=== PATIENT | male | born 1965 | race Caucasian/White ===

== ENCOUNTER 2023-02-13 21:15 | Inpatient (IN) | payer OTHER ==
[2023-02-13 21:26] VITALS: BMI 25.7
[2023-02-13 23:03] LABS: BASO % 0.6 % (0-2.0); EOS % 1.3 % (0-4.5); HEMOGLOBIN 14.6 GM/dL (11.7-16.9); LYMPH % 21.2 % (8-40); MCH 31.2 pg (25.7-33.7); MCHC 34.9 g/dl (32.0-35.9); MEAN CELL VOLUME 89.5 fl (80-96); MEAN PLT VOLUME 10.2 fl (7.5-11.1); MONO % 8.9 % (3.8-10.2); PLATELET COUNT 128 10^3/uL (134-434); RDW 12.5 % (11.9-15.9); WHITE BLOOD COUNT 11.9 K/mm3 (4.0-10.0)
[2023-02-13 23:14] LABS: INR 1.05 (0.83-1.09); PROTHROMBIN TIME (PATIENT) 12.2 SEC (9.7-13.0)
[2023-02-13 23:17] LABS: ACTIVATED PTT 30.2 SECONDS (25.2-36.5)
[2023-02-13 23:31] LABS: POTASSIUM 4.2 mmol/L (3.5-5.1)
[2023-02-13 23:33] LABS: ALBUMIN 3.5 g/dl (3.4-5.0); BLOOD UREA NITROGEN 17.3 mg/dL (7-18); CALCIUM 9.2 mg/dL (8.5-10.1); MAGNESIUM 2.2 mg/dL (1.8-2.4)
[2023-02-13 23:36] LABS: CREATININE 1.1 mg/dL (0.55-1.3)
[2023-02-13 23:38] LABS: TOT PROT 7.8 g/dl (6.4-8.2)
[2023-02-14 00:36] LABS: BILIRUBIN,TOTAL 0.2 mg/dL (0.2-1)
[2023-02-14] MEDS ORDERED: ENOXAPARIN NA (PORCINE) 40 MG/0.4 ML DISP.SYRIN SQ ONE (01:31)
[2023-02-14] MEDS ORDERED: ENOXAPARIN NA (PORCINE) 80 MG/0.8 ML DISP.SYRIN SQ ONE (01:35)
[2023-02-14 01:54] LABS: N-TERMINAL BNP 31.2 pg/ml (5-125)
[2023-02-14] MEDS ORDERED: hydrALAZINE HCL 20 MG/ML VIAL IVPUSH PRN (02:54)
[2023-02-14] MEDS ORDERED: LOSARTAN POTASSIUM 50 MG TABLET ONE (03:29)
[2023-02-14] MEDS: LOSARTAN POTASSIUM 50 MG TABLET PO SCH ×2 (03:33→09:21)
[2023-02-14 06:32] LABS: HEMATOCRIT 42.5 % (35.4-49); HEMOGLOBIN 14.4 GM/dL (11.7-16.9); MCHC 33.9 g/dl (32.0-35.9); MEAN CELL VOLUME 91.5 fl (80-96); PLATELET COUNT 124 10^3/uL (134-434); RBC 4.64 M/mm3 (4.00-5.60); RDW 12.7 % (11.9-15.9); WHITE BLOOD COUNT 9.8 K/mm3 (4.0-10.0)
[2023-02-14 06:50] LABS: POTASSIUM 3.9 mmol/L (3.5-5.1)
[2023-02-14 06:54] LABS: CALCIUM 8.6 mg/dL (8.5-10.1)
[2023-02-14 06:55] LABS: BLOOD UREA NITROGEN 15.1 mg/dL (7-18)
[2023-02-14 06:57] LABS: CREATININE 0.9 mg/dL (0.55-1.3)
[2023-02-14] MEDS: INSULIN SLIDING SCALE (NOVOLOG) 1 VIAL SQ SCH ×4 (08:00→22:28)
[2023-02-14] MEDS: APIXABAN 5 MG TABLET PO SCH ×2 (09:21→22:18)
[2023-02-14] MEDS ORDERED: INSULIN (NOVOLOG) ASPART 100 UNITS/ML 10ML VIAL ONE ×3 (09:40→16:36)
[2023-02-14] MEDS ORDERED: ENOXAPARIN NA (PORCINE) 80 MG/0.8 ML DISP.SYRIN SQ SCH (10:00)
[2023-02-14] MEDS: ATORVASTATIN CA 80 MG TABLET (FP) PO SCH ×2 (15:25→22:18)
[2023-02-14] MEDS: INSULIN (LEVEMIR) 100 UNITS/ML UNITS SQ SCH (22:24)
[2023-02-15] MEDS: metFORMIN HCL 500 MG TABLET (FP) PO SCH ×2 (06:02→17:48)
[2023-02-15] MEDS: INSULIN (LEVEMIR) 100 UNITS/ML UNITS SQ SCH (06:04)
[2023-02-15] MEDS: INSULIN SLIDING SCALE (NOVOLOG) 1 VIAL SQ SCH ×3 (06:05→17:46)
[2023-02-15 08:11] LABS: BASO % 0.7 % (0-2.0); EOS % 2.6 % (0-4.5); HEMATOCRIT 45.1 % (35.4-49); HEMOGLOBIN 15.2 GM/dL (11.7-16.9); LYMPH % 31.6 % (8-40); MCH 31.2 pg (25.7-33.7); MCHC 33.8 g/dl (32.0-35.9); MEAN CELL VOLUME 92.5 fl (80-96); MEAN PLT VOLUME 10.5 fl (7.5-11.1); MONO % 10.4 % (3.8-10.2); NEUT % 54.7 % (42.8-82.8); PLATELET COUNT 138 10^3/uL (134-434); RBC 4.87 M/mm3 (4.00-5.60); RDW 12.5 % (11.9-15.9); WHITE BLOOD COUNT 7.9 K/mm3 (4.0-10.0)
[2023-02-15 08:22] LABS: POTASSIUM 4.1 mmol/L (3.5-5.1)
[2023-02-15 08:31] LABS: CALCIUM 8.8 mg/dL (8.5-10.1)
[2023-02-15 08:32] LABS: ALBUMIN 3.3 g/dl (3.4-5.0); BLOOD UREA NITROGEN 15.4 mg/dL (7-18)
[2023-02-15 08:35] LABS: CREATININE 0.9 mg/dL (0.55-1.3)
[2023-02-15 08:36] LABS: BILIRUBIN,TOTAL 0.4 mg/dL (0.2-1); TOT PROT 7.7 g/dl (6.4-8.2)
[2023-02-15] MEDS: APIXABAN 5 MG TABLET PO SCH (09:27)
[2023-02-15] MEDS: LOSARTAN POTASSIUM 50 MG TABLET PO SCH (09:27)
[2023-02-15 09:30] VITALS: RESP 16
[2023-02-15 14:51] VITALS: BP 128/80; PULSE 101; TEMP 98.5
[2023-02-15] MEDS ORDERED: PNEUMOC 20-VAL CONJ-DIP CRM/PF 0.5 ML SYRINGE IM ONE (16:54)
[2023-02-15] MEDS ORDERED: INSULIN (NOVOLOG) ASPART 100 UNITS/ML 10ML VIAL ONE (17:28)
== END 2023-02-15 19:41 | disposition home or self-care (01) | DRG 134 ==
LOC: JER 21:15 → JERBED 02-14 01:41 → J4W 02-14 07:35
PROVIDERS: ADMIT Internal Medicine; ATTEND Internal Medicine
DX: I26.99 Other pulmonary embolism without acute cor pulmonale (principal); I82.412 Acute embolism and thrombosis of left femoral vein; I82.442 Acute embolism and thrombosis of left tibial vein; I10 Essential (primary) hypertension; I16.0 Hypertensive urgency; E78.5 Hyperlipidemia, unspecified; J45.909 Unspecified asthma, uncomplicated; R50.9 Fever, unspecified; R00.0 Tachycardia, unspecified; E11.65 Type 2 diabetes mellitus with hyperglycemia
CPT/HCPCS: 36415; 71275-TC; 80048; 80053; 80061; 82962; 83036; 83735; 83880; 84443; 84484; 85025; 85027; 85379; 85610; 85730; 90677; 93005; 93010; 93306-TC; 93971-TC; 99285-25

== ENCOUNTER 2023-03-08 03:55 | Day surgery (SDC) | payer OTHER ==
[2023-03-06 10:41] VITALS: BMI 25.9
[~2023-03-08 03:55] MED LIST: HEPARIN NA (PORCINE) 5,000 UNITS/ML 1ML VIAL SQ ONE; LIDOCAINE HCL 1%, 10 MG/ML (20ML VIAL) NR ONE
[2023-03-08 07:49] VITALS: RESP 18
[2023-03-08] MEDS ORDERED: HEPARIN NA (PORCINE) 5,000 UNITS/ML 1ML VIAL ONE ×2 (10:21→11:54)
[2023-03-08] MEDS ORDERED: LIDOCAINE HCL 1%, 10 MG/ML (20ML VIAL) ONE (10:21)
[2023-03-08] MEDS ORDERED: ONDANSETRON 4 MG/2 ML VIAL IVPUSH PRN (10:39)
[2023-03-08] MEDS ORDERED: ACETAMINOPHEN 325 MG TABLET (FP) PO PRN (10:39)
[2023-03-08] MEDS ORDERED: oxyCODONE HCL 5 MG TABLET PO PRN (10:39)
[2023-03-08] MEDS ORDERED: LACTATED RINGERS SOLUTION 1,000 ML IV SCH (10:45)
[2023-03-08] MEDS ORDERED: PROPOFOL 20 ML ONE (12:44)
[2023-03-08] MEDS ORDERED: MIDAZOLAM HCL 2 MG/2 ML SINGLE DOSE VIAL ONE (12:45)
[2023-03-08] MEDS ORDERED: ceFAZolin SODIUM 1 GM VIAL IVPB ONE (12:50)
[2023-03-08] MEDS ORDERED: LIDOCAINE HCL 1%, 10 MG/ML (50 mL VIAL) INF ONE ×2 (12:52→12:55)
[2023-03-08 17:40] VITALS: BP 160/88; PULSE 78; TEMP 98
== END 2023-03-08 17:10 | disposition home or self-care (01) ==
LOC: JASU-SURG 03:55
PROVIDERS: ATTEND Surgery Vascular Surgery
PROC: 067N3ZZ Dilation of Left Femoral Vein, Percutaneous Approach (ICD-10-PCS; principal; 2023-03-08 09:30)
PROC: 067D3DZ Dilation of Left Common Iliac Vein with Intraluminal Device, Percutaneous Approach (ICD-10-PCS; 2023-03-08 09:30)
DX: I82.492 Acute embolism and thrombosis of other specified deep vein of left lower extremity (principal)
CPT/HCPCS: 37187; 37238; 37248; C1757; C1877; 76000-TC-FY; 82962; 94760; C1725; C1876; C1897; J1644

== ENCOUNTER 2023-03-12 15:04 | Inpatient (IN) | payer OTHER ==
[2023-03-12 16:24] LABS: BASO % 0.3 % (0-2.0); EOS % 1.5 % (0-4.5); HEMATOCRIT 44.6 % (35.4-49); LYMPH % 19.7 % (8-40); MCH 30.5 pg (25.7-33.7); MCHC 33.7 g/dl (32.0-35.9); MEAN CELL VOLUME 90.7 fl (80-96); MEAN PLT VOLUME 10.1 fl (7.5-11.1); MONO % 9.3 % (3.8-10.2); NEUT % 69.2 % (42.8-82.8); PLATELET COUNT 250 10^3/uL (134-434); RBC 4.91 M/mm3 (4.00-5.60); RDW 12.5 % (11.9-15.9); WHITE BLOOD COUNT 14.3 K/mm3 (4.0-10.0)
[2023-03-12] MEDS ORDERED: ASPIRIN 81 MG CHEWABLE TABLETS PO ONE (16:31)
[2023-03-12] MEDS ORDERED: SODIUM CHLORIDE 0.9% 500 ML INFUS.BAG IV ONE (16:31)
[2023-03-12 16:33] LABS: INR 1.21 (0.83-1.09)
[2023-03-12 16:36] LABS: ACTIVATED PTT 31.1 SECONDS (25.2-36.5)
[2023-03-12] MEDS ORDERED: ASPIRIN 81 MG CHEWABLE TABLETS ONE (16:44)
[2023-03-12 16:50] LABS: POTASSIUM 4.4 mmol/L (3.5-5.1)
[2023-03-12 16:52] LABS: BLOOD UREA NITROGEN 21.6 mg/dL (7-18); CALCIUM 9.5 mg/dL (8.5-10.1); MAGNESIUM 2.2 mg/dL (1.8-2.4)
[2023-03-12 16:53] LABS: ALBUMIN 3.8 g/dl (3.4-5.0)
[2023-03-12 16:55] LABS: PHOSPHOROUS 5.6 mg/dL (2.5-4.9)
[2023-03-12 16:57] LABS: BILIRUBIN,TOTAL 0.7 mg/dL (0.2-1); TOT PROT 8.4 g/dl (6.4-8.2)
[2023-03-12] MEDS ORDERED: HEPARIN NA (PORCINE) 5,000 UNITS/ML 1ML VIAL SQ ONE (18:07)
[2023-03-12] MEDS ORDERED: HEPARIN NA (PORCINE) 5,000 UNITS/ML 1ML VIAL IVPUSH PRN ×5 (18:08→18:24)
[2023-03-12] MEDS ORDERED: HEPARIN NA (PORCINE) 5,000 UNITS/ML 1ML VIAL ONE (18:14)
[2023-03-12] MEDS ORDERED: HEPARIN INFUSION - 25,000 UNITS/500 ML INFUS.BAG IVPB ONE (18:15)
[2023-03-12] MEDS ORDERED: HEPARIN - 25,000 UNIT in SODIUM CHLORIDE 495 ML IV SCH ×2 (18:15→18:30)
[2023-03-12] MEDS ORDERED: HEPARIN NA (PORCINE) 5,000 UNITS/ML 1ML VIAL IVPUSH ONE ×2 (18:17→18:20)
[2023-03-12] MEDS ORDERED: HEPARIN INFUSION - 500 ML IVPB SCH (18:30)
[2023-03-12] MEDS: INSULIN SLIDING SCALE (NOVOLOG) 1 VIAL SQ SCH (22:03)
[2023-03-12 22:33] LABS: EPI CELLS 4 /uL (0-25.1); HYALINE CASTS 0 /uL (0-3.1); URINE APPEARANCE CLEAR; URINE BACTERIA 2 /uL (0-1359); URINE BILIRUBIN NEGATIVE (NEGATIVE); URINE COLOR YELLOW; URINE GLUCOSE (UA) 3+ (NEGATIVE); URINE KETONE TRACE (NEGATIVE); URINE LEUK ESTERASE NEGATIVE (NEGATIVE); URINE NITRITE NEGATIVE (NEGATIVE); URINE PROTEIN NEGATIVE (NEGATIVE); URINE RBC 5 /uL (0-23.9); URINE UROBILINOGEN 0.2 mg/dL (0.2-1.0); URINE WBC 2 /uL (0-25.8)
[2023-03-12 23:08] VITALS: BMI 24.9
[2023-03-12 23:22] LABS: N-TERMINAL BNP 20.6 pg/ml (5-125)
[2023-03-13] MEDS: INSULIN SLIDING SCALE (NOVOLOG) 1 VIAL SQ SCH ×4 (06:04→21:37)
[2023-03-13 08:45] LABS: HEMATOCRIT 39.7 % (35.4-49); HEMOGLOBIN 13.2 GM/dL (11.7-16.9); MCH 30.3 pg (25.7-33.7); MCHC 33.1 g/dl (32.0-35.9); MEAN CELL VOLUME 91.4 fl (80-96); MEAN PLT VOLUME 10.5 fl (7.5-11.1); PLATELET COUNT 226 10^3/uL (134-434); RBC 4.34 M/mm3 (4.00-5.60); RDW 12.7 % (11.9-15.9); WHITE BLOOD COUNT 10.3 K/mm3 (4.0-10.0)
[2023-03-13] MEDS ORDERED: amLODIPine BESYLATE 5 MG TABLET (FP) PO SCH (10:00)
[2023-03-13] MEDS: LOSARTAN POTASSIUM 50 MG TABLET PO SCH (10:07)
[2023-03-13] MEDS: AMLODIPINE BESYLATE 5 MG, AMLODIPINE BESYLATE 2.5 MG PO SCH (10:07)
[2023-03-13 12:19] LABS: POTASSIUM 4.1 mmol/L (3.5-5.1)
[2023-03-13] MEDS ORDERED: INSULIN (NOVOLOG) ASPART 100 UNITS/ML 10ML VIAL ONE ×2 (12:32→21:15)
[2023-03-13 13:20] LABS: ALBUMIN 3.5 g/dl (3.4-5.0); BLOOD UREA NITROGEN 15.7 mg/dL (7-18); CALCIUM 8.7 mg/dL (8.5-10.1); MAGNESIUM 2.1 mg/dL (1.8-2.4)
[2023-03-13 13:22] LABS: PHOSPHOROUS 3.7 mg/dL (2.5-4.9)
[2023-03-13 13:23] LABS: CREATININE 0.8 mg/dL (0.55-1.3)
[2023-03-13 13:24] LABS: BILIRUBIN,TOTAL 0.4 mg/dL (0.2-1); TOT PROT 7.6 g/dl (6.4-8.2)
[2023-03-13] MEDS: ENOXAPARIN NA (PORCINE) 80 MG/0.8 ML DISP.SYRIN SQ SCH ×2 (16:57→21:35)
[2023-03-13] MEDS ORDERED: ACETAMINOPHEN 1000 MG/100 ML BAG IVPB ONE (19:50)
[2023-03-13] MEDS: ATORVASTATIN CA 40 MG TABLET (FP) PO SCH (21:35)
[2023-03-13] MEDS: INSULIN (LEVEMIR) 100 UNITS/ML UNITS SQ SCH (21:36)
[2023-03-14] MEDS: INSULIN SLIDING SCALE (NOVOLOG) 1 VIAL SQ SCH ×4 (06:40→21:14)
[2023-03-14 08:03] LABS: HEMATOCRIT 39.9 % (35.4-49); HEMOGLOBIN 13.7 GM/dL (11.7-16.9); MCH 30.8 pg (25.7-33.7); MCHC 34.4 g/dl (32.0-35.9); MEAN CELL VOLUME 89.6 fl (80-96); MEAN PLT VOLUME 9.7 fl (7.5-11.1); PLATELET COUNT 215 10^3/uL (134-434); RBC 4.46 M/mm3 (4.00-5.60); RDW 12.9 % (11.9-15.9)
[2023-03-14 08:20] LABS: POTASSIUM 4.5 mmol/L (3.5-5.1)
[2023-03-14 08:43] LABS: CALCIUM 8.7 mg/dL (8.5-10.1)
[2023-03-14 08:44] LABS: MAGNESIUM 2.2 mg/dL (1.8-2.4)
[2023-03-14 08:46] LABS: ALBUMIN 3.3 g/dl (3.4-5.0); CREATININE 0.8 mg/dL (0.55-1.3); PHOSPHOROUS 3.4 mg/dL (2.5-4.9)
[2023-03-14 08:48] LABS: BILIRUBIN,TOTAL 0.4 mg/dL (0.2-1); TOT PROT 7.7 g/dl (6.4-8.2)
[2023-03-14] MEDS: ENOXAPARIN NA (PORCINE) 80 MG/0.8 ML DISP.SYRIN SQ SCH ×2 (09:00→21:20)
[2023-03-14] MEDS: LOSARTAN POTASSIUM 50 MG TABLET PO SCH (09:00)
[2023-03-14] MEDS: AMLODIPINE BESYLATE 5 MG, AMLODIPINE BESYLATE 2.5 MG PO SCH (09:00)
[2023-03-14] MEDS ORDERED: ACETAMINOPHEN 1000 MG/100 ML BAG IVPB ONE (10:07)
[2023-03-14] MEDS ORDERED: INSULIN (NOVOLOG) ASPART 100 UNITS/ML 10ML VIAL ONE ×3 (11:44→21:05)
[2023-03-14] MEDS: INSULIN (LEVEMIR) 100 UNITS/ML UNITS SQ SCH (21:13)
[2023-03-14] MEDS: ATORVASTATIN CA 40 MG TABLET (FP) PO SCH (21:14)
[2023-03-15] MEDS: INSULIN SLIDING SCALE (NOVOLOG) 1 VIAL SQ SCH ×2 (06:16→12:31)
[2023-03-15 07:22] LABS: HEMATOCRIT 41.5 % (35.4-49); HEMOGLOBIN 14.3 GM/dL (11.7-16.9); MCH 30.7 pg (25.7-33.7); MCHC 34.6 g/dl (32.0-35.9); MEAN CELL VOLUME 88.8 fl (80-96); MEAN PLT VOLUME 9.3 fl (7.5-11.1); PLATELET COUNT 227 10^3/uL (134-434); RBC 4.67 M/mm3 (4.00-5.60); RDW 12.4 % (11.9-15.9); WHITE BLOOD COUNT 9.1 K/mm3 (4.0-10.0)
[2023-03-15 07:41] LABS: POTASSIUM 3.9 mmol/L (3.5-5.1)
[2023-03-15 07:44] LABS: CALCIUM 8.7 mg/dL (8.5-10.1)
[2023-03-15 07:46] LABS: ALBUMIN 3.4 g/dl (3.4-5.0); BLOOD UREA NITROGEN 13.1 mg/dL (7-18); MAGNESIUM 2.2 mg/dL (1.8-2.4)
[2023-03-15 07:48] LABS: CREATININE 0.7 mg/dL (0.55-1.3); TOT PROT 7.7 g/dl (6.4-8.2)
[2023-03-15 07:50] LABS: BILIRUBIN,TOTAL 0.4 mg/dL (0.2-1)
[2023-03-15] MEDS: ENOXAPARIN NA (PORCINE) 80 MG/0.8 ML DISP.SYRIN SQ SCH (09:18)
[2023-03-15] MEDS: AMLODIPINE BESYLATE 5 MG, AMLODIPINE BESYLATE 2.5 MG PO SCH (09:18)
[2023-03-15] MEDS: LOSARTAN POTASSIUM 50 MG TABLET PO SCH (09:19)
[2023-03-15 09:23] VITALS: BP 139/92; PULSE 100; RESP 18; TEMP 98.8
[2023-03-15] MEDS ORDERED: INSULIN (NOVOLOG) ASPART 100 UNITS/ML 10ML VIAL ONE (12:30)
== END 2023-03-15 15:18 | disposition home or self-care (01) | DRG 206 ==
LOC: JER 15:04 → JERBED 18:21 → J4W 22:30
PROVIDERS: ADMIT Internal Medicine; ATTEND Internal Medicine
DX: I97.89 Other postprocedural complications and disorders of the circulatory system, not elsewhere classified (principal); I26.99 Other pulmonary embolism without acute cor pulmonale; I10 Essential (primary) hypertension; E78.5 Hyperlipidemia, unspecified; R00.0 Tachycardia, unspecified; E11.9 Type 2 diabetes mellitus without complications; I82.412 Acute embolism and thrombosis of left femoral vein; I82.442 Acute embolism and thrombosis of left tibial vein; Y83.8 Other surgical procedures as the cause of abnormal reaction of the patient, or of later complication, without mention of misadventure at the time of the procedure
CPT/HCPCS: 36415; 71045-TC-FY; 71275-TC; 80053; 81003; 81240; 81241; 82962; 83735; 83880; 84100; 84484; 85025; 85027; 85300; 85610; 85730; 93005; 93010; 93306-TC; 93970-TC; 94010; 97116-GP; 97161-GP; 99285-25; G0463-25; J1644; Q9967

== ENCOUNTER 2023-09-22 12:07 | Emergency (ER) | payer SELFPAY ==
[2023-09-22 12:13] VITALS: TEMP 98.5; BMI 26.6
[2023-09-22 13:01] LABS: EPI CELLS 1 /uL (0-25.1); HYALINE CASTS 0 /uL (0-3.1); PH,URINE 5.5 (5.0-8.0); URINE APPEARANCE TURBID; URINE BACTERIA 1635 /uL (0-1359); URINE BILIRUBIN NEGATIVE (NEGATIVE); URINE COLOR YELLOW; URINE GLUCOSE (UA) 3+ (NEGATIVE); URINE KETONE NEGATIVE (NEGATIVE); URINE LEUK ESTERASE 2+ (NEGATIVE); URINE NITRITE NEGATIVE (NEGATIVE); URINE PROTEIN 2+ (NEGATIVE); URINE RBC 304 /uL (0-23.9); URINE UROBILINOGEN 0.2 mg/dL (0.2-1.0); URINE WBC 14724 /uL (0-25.8)
[2023-09-22] MEDS ORDERED: SULFAMETHOXAZOLE/TRIMETHOPRIM 800MG/160MG D.S. TABLET ONE (13:36)
[2023-09-22] MEDS: SULFAMETHOXAZOLE/TRIMETHOPRIM 800MG/160MG D.S. TABLET PO ONE (13:41)
[2023-09-22 14:59] LABS: BASO % 0.8 % (0-2.0); EOS % 1.1 % (0-4.5); HEMATOCRIT 42.9 % (35.4-49); HEMOGLOBIN 14.6 GM/dL (11.7-16.9); LYMPH % 23.8 % (8-40); MCHC 34.1 g/dl (32.0-35.9); MEAN CELL VOLUME 88.2 fl (80-96); MEAN PLT VOLUME 10.4 fl (7.5-11.1); MONO % 7.6 % (3.8-10.2); NEUT % 66.7 % (42.8-82.8); PLATELET COUNT 191 10^3/uL (134-434); RBC 4.86 M/mm3 (4.00-5.60); RDW 13.4 % (11.9-15.9); WHITE BLOOD COUNT 9.8 K/mm3 (4.0-10.0)
[2023-09-22] MEDS: SODIUM CHLORIDE 0.9% 500 ML INFUS.BAG IV ONE ×2 (15:00→17:10)
[2023-09-22 15:04] LABS: VENOUS BASE EXCESS 0.2 mmol/L (-2-2); VENOUS PCO2 41.3 mmHg (38-52); VENOUS PH 7.4 (7.310-7.410)
[2023-09-22 15:18] LABS: CHLORIDE 101 mmol/L (98-107); POTASSIUM 4.3 mmol/L (3.5-5.1); SODIUM 135 mmol/L (136-145)
[2023-09-22 15:20] LABS: ALBUMIN 3.2 g/dl (3.4-5.0); ANION GAP 10 mmol/L (4-13); BLOOD UREA NITROGEN 14.4 mg/dL (7-18); CO2 24 mmol/L (21-32); MAGNESIUM 1.8 mg/dL (1.8-2.4)
[2023-09-22 15:23] LABS: CREATININE 0.9 mg/dL (0.55-1.3); SGOT/AST 16 U/L (15-37); SGPT/ALT 31 U/L (13-61)
[2023-09-22 15:25] LABS: BILIRUBIN,TOTAL 0.3 mg/dL (0.2-1); TOT PROT 7.4 g/dl (6.4-8.2)
[2023-09-22 15:26] LABS: ALK PHOS 143 U/L (45-117); GLUCOSE,RANDOM 428 mg/dL (74-106)
[2023-09-22] MEDS ORDERED: INSULIN REGULAR HUMAN 100 UNITS/ML *VIAL ONE (17:12)
[2023-09-22] MEDS: INSULIN REGULAR HUMAN 100 UNITS/ML *VIAL SQ ONE (17:15)
[2023-09-22 18:09] VITALS: BP 122/76; PULSE 81; RESP 20
== END 2023-09-22 18:09 | disposition home or self-care (01) ==
LOC: JER 12:07
PROC: 3E013VG Introduction of Insulin into Subcutaneous Tissue, Percutaneous Approach (ICD-10-PCS; principal; 2023-09-22)
DX: R30.0 Dysuria (principal); R39.15 Urgency of urination; R35.0 Frequency of micturition; N30.00 Acute cystitis without hematuria; R73.9 Hyperglycemia, unspecified
CPT/HCPCS: 36415; 80053; 81003; 82010; 82803; 82962; 83735; 85025; 87086; 87186; 99284-25